=== PATIENT | female | born 1940 | race Caucasian/White ===

== ENCOUNTER → 2017-04-11 16:33 | Outpatient (CLI) | payer MEDICARE, OTHER ==
[2013-04-05 10:24] VITALS: BMI 31.8
[~2017-04-11 16:33] MED LIST: CHLORTHALIDONE25 MG PO; PRAVACHOL40 MG PO
== END | disposition home or self-care (01) ==
LOC: D.MAMMO 09:30
DX: Z90.12 Acquired absence of left breast and nipple (principal); Z85.3 Personal history of malignant neoplasm of breast